=== PATIENT | female | born 1970 | race Two or more races ===

== ENCOUNTER 2022-11-24 15:58 | Emergency (ER) | payer MEDICAID, OTHER | END 2022-11-24 17:42 | disposition left against medical advice (07) | LOC: ER 15:58 | DX: R10.9 Unspecified abdominal pain (principal); Z53.21 Procedure and treatment not carried out due to patient leaving prior to being seen by health care provider ==

== ENCOUNTER 2023-06-06 13:47 | Inpatient (IN) | payer MEDICAID ==
[~2023-06-06] VITALS: Ht 165.1 cm; Wt 108.0 kg
[~2023-06-06 13:47] MED LIST: AML5T PO; HYOS0.1289 PO; LEVO50TA7 PO; PANT40TA2 PO; PERCOT PO
[2023-06-06] MEDS ORDERED: KETOROLAC TROMETH 60MG/2ML VIAL IM ONE (14:45)
[2023-06-06] MEDS ORDERED: PROCHLORPERAZINE EDISYLATE 5 MG/ML 2ML VIAL IM ONE (14:45)
[2023-06-06] MEDS ORDERED: LORazepam 2MG/ML-1ML VIAL IM ONE (14:45)
[2023-06-06 15:08] LABS: Basophils # (auto) 0.1 10 ^3/uL (0-0.2); Basophils % (auto) 0.4 % (0.0-2.0); Eosinophils # (auto) 0.2 10 ^3/uL (0-0.8); Eosinophils % (auto) 1.5 % (0.0-7.0); Hemoglobin 15.4 g/dL (12.2-16.2); Lymphocytes # (auto) 3.5 10 ^3/uL (0.4-5.4); Mean Corpuscular Hemoglobin 30.3 pg (28.0-32.0); Mean Corpuscular Hgb Conc. 34.3 g/dL (32.0-36.0); Mean Corpuscular Volume 88.4 fL (80.0-100.0); Monocytes # (auto) 0.6 10 ^3/uL (0-1.3); Monocytes % (auto) 4.1 % (0.0-12.0); Neutrophils # (auto) 9.2 10 ^3/uL (1.6-8.6); Red Blood Cells 5.09 10^6/uL (4.0-5.20); Red Cell Distribution Width 13.8 % (11.8-14.3); White Blood Cell 13.5 10^3/uL (4.4-10.8)
[2023-06-06 15:37] LABS: Alanine Aminotransferase 22 U/L (7-40); Albumin 4.7 g/dL (3.2-4.8); Alkaline Phosphatase 100 U/L (46-116); Anion Gap 10 (5-15); Aspartate Aminotransferase 12 U/L (13-40); BUN/Creatinine Ratio 18.3 (10.0-20.0); Blood Urea Nitrogen 17 mg/dL (9-23); Carbon Dioxide 22 mmol/L (20-30); Chloride 108 mmol/L (98-107); Glucose 120 mg/dL (74-106); Lipase 43 U/L (12-53); Potassium 3.9 mmol/L (3.5-5.1); Sodium 140 mmol/L (136-145)
[2023-06-06 15:38] LABS: Bilirubin, Total 0.7 mg/dL (0.2-1.0)
[2023-06-06 16:07] VITALS: PULSE 56; RESP 20; O2SAT 100
[2023-06-06 16:16] LABS: Urine Bacteria NONE SEEN /hpf (None Seen); Urine Blood 3+ /uL (Negative); Urine Clarity HAZY (Clear); Urine Color Red (Yellow); Urine Mucus FEW (None Seen); Urine Protein, UAD 2+ (Negative); Urine Specific Gravity 1.036 (1.001-1.035); Urine WBC 47 /hpf (0 - 5)
[2023-06-06] MEDS ORDERED: cefTRIAXone 1GM/50ML D5W 50 ML IV ONE (16:45)
[2023-06-06] MEDS ORDERED: SODIUM CHLORIDE 0.9% 1,000 ML IV ONE (18:45)
[2023-06-06] MEDS ORDERED: MORPHINE SULFATE 4 MG/ML SYR/VIAL IV ONE (18:45)
[2023-06-06 19:20] VITALS: PULSE 52; RESP 16; O2SAT 96
[2023-06-06] MEDS ORDERED: HYDROcodone-ACET 5/325MG TAB PO PRN (20:30)
[2023-06-06] MEDS ORDERED: TEMAZEPAM 15 MG CAP PO PRN (20:30)
[2023-06-06] MEDS ORDERED: ACETAMINOPHEN 325 MG TAB PO PRN (20:30)
[2023-06-06] MEDS ORDERED: MORPHINE SULFATE INJ 2 MG/ml SYRG IV PRN (20:30)
[2023-06-06] MEDS ORDERED: ONDANSETRON HCL 4 MG/2 ML VIAL IV PRN (20:30)
[2023-06-06] MEDS ORDERED: NITROGLYCERIN 0.4 MG SL TAB SL PRN (20:30)
[2023-06-07 05:11] LABS: Basophils # (auto) 0.1 10 ^3/uL (0-0.2); Basophils % (auto) 0.7 % (0.0-2.0); Eosinophils # (auto) 0 10 ^3/uL (0-0.8); Eosinophils % (auto) 0.1 % (0.0-7.0); Hematocrit 40.4 % (36.0-46.0); Hemoglobin 13.8 g/dL (12.2-16.2); Lymphocytes # (auto) 2.9 10 ^3/uL (0.4-5.4); Lymphocytes % (auto) 21.7 % (10.0-50.0); Mean Corpuscular Hemoglobin 30.3 pg (28.0-32.0); Mean Corpuscular Hgb Conc. 34.2 g/dL (32.0-36.0); Mean Corpuscular Volume 88.6 fL (80.0-100.0); Monocytes # (auto) 0.8 10 ^3/uL (0-1.3); Neutrophils # (auto) 9.5 10 ^3/uL (1.6-8.6); Neutrophils % (auto) 71.5 % (37.0-80.0); Red Blood Cells 4.56 10^6/uL (4.0-5.20); White Blood Cell 13.3 10^3/uL (4.4-10.8)
[2023-06-07 05:19] LABS: Chloride 107 mmol/L (98-107); Potassium 3.7 mmol/L (3.5-5.1); Sodium 137 mmol/L (136-145)
[2023-06-07 05:20] LABS: Anion Gap 8 (5-15); Carbon Dioxide 22 mmol/L (20-30)
[2023-06-07 05:25] LABS: BUN/Creatinine Ratio 13.4 (10.0-20.0); Blood Urea Nitrogen 16 mg/dL (9-23); Glucose 117 mg/dL (74-106)
[2023-06-07] MEDS: LEVOTHYROXINE SODIUM 50 MCG TAB PO SCH (06:37)
[2023-06-07] MEDS: MORPHINE SULFATE INJ 2 MG/ml SYRG IV PRN ×2 (06:49→22:06)
[2023-06-07 07:35] VITALS: RESP 16
[2023-06-07 09:00] VITALS: BP 138/83; PULSE 64; RESP 20; TEMP 98.6; O2SAT 97
[2023-06-07] MEDS: cefTRIAXone 1GM/50ML D5W 50 ML IV SCH (09:47)
[2023-06-07] MEDS: amLODIPine BESYLATE 5 MG TAB PO SCH (09:48)
[2023-06-07] MEDS ORDERED: PANTOPRAZOLE 40 MG TAB PO SCH (10:00)
[2023-06-07 13:00] VITALS: BP 133/76; PULSE 61; RESP 16; TEMP 98.1; O2SAT 96
[2023-06-07] MEDS ORDERED: LEVO50TA7 PO (14:55)
[2023-06-07] MEDS ORDERED: PERCOT PO (15:00)
[2023-06-07] MEDS ORDERED: PANT40TA2 PO ×2 (15:00→15:03)
[2023-06-07] MEDS ORDERED: SUCR1TAB PO (15:01)
[2023-06-07 17:00] VITALS: BP 126/79; PULSE 67; RESP 20; TEMP 98.7; O2SAT 95
[2023-06-07] MEDS: OXYCODONE W/ ACETAMINOPHEN 5/325MG TABLET PO PRN (17:35)
[2023-06-07 20:00] VITALS: BP 137/66; PULSE 57; RESP 18; TEMP 98.1; O2SAT 97
[2023-06-08] VITALS (8 sets, daily range): BP systolic 103–147; BP diastolic 60–95; PULSE 54–75; RESP 14–18; TEMP 97.7–98.5; O2SAT 96–99
[2023-06-08] MEDS: LEVOTHYROXINE SODIUM 50 MCG TAB PO SCH (06:13)
[2023-06-08] MEDS: amLODIPine BESYLATE 5 MG TAB PO SCH (10:39)
[2023-06-08] MEDS: cefTRIAXone 1GM/50ML D5W 50 ML IV SCH (10:39)
[2023-06-08] MEDS: MORPHINE SULFATE INJ 2 MG/ml SYRG IV PRN (11:21)
[2023-06-09] MEDS: MORPHINE SULFATE INJ 2 MG/ml SYRG IV PRN (02:42)
[2023-06-09 05:00] VITALS: BP 144/87; PULSE 53; RESP 18; TEMP 98.7; O2SAT 94
[2023-06-09] MEDS: LEVOTHYROXINE SODIUM 50 MCG TAB PO SCH ×2 (06:03→08:00)
[2023-06-09 08:00] VITALS: BP 142/86; PULSE 54; RESP 16; TEMP 97.7; O2SAT 96
[2023-06-09] MEDS: cefTRIAXone 1GM/50ML D5W 50 ML IV SCH (09:41)
[2023-06-09] MEDS: amLODIPine BESYLATE 5 MG TAB PO SCH (09:41)
[2023-06-09] MEDS ORDERED: HYDR-4902 PO (11:30)
[2023-06-09] MEDS ORDERED: LEVO500T91 PO (11:30)
[2023-06-09] MEDS: OXYCODONE W/ ACETAMINOPHEN 5/325MG TABLET PO PRN (11:36)
[2023-06-09 11:49] VITALS: BP 152/84; PULSE 58; RESP 19; TEMP 98.7; O2SAT 58
== END 2023-06-09 13:30 | disposition home or self-care (01) | DRG 463 ==
LOC: ER 13:47 → OVERFLOW 20:27 → WEST WING 06-07 08:25
PROVIDERS: ADMIT Nurse Practitioner; ATTEND Internal Medicine
DX: N13.6 Pyonephrosis (principal); E66.01 Morbid (severe) obesity due to excess calories; G89.4 Chronic pain syndrome; I10 Essential (primary) hypertension; K21.9 Gastro-esophageal reflux disease without esophagitis; Z87.442 Personal history of urinary calculi; Z68.39 Body mass index [BMI] 39.0-39.9, adult; Z88.5 Allergy status to narcotic agent; Z90.49 Acquired absence of other specified parts of digestive tract
CPT/HCPCS: 36415; 74176; 80048; 80053; 81001; 83690; 85025; 87086; 93005; 96372; G0378; J0696; J1885; J2405

== ENCOUNTER 2025-07-11 20:33 | Inpatient (IN) | payer MEDICAID ==
[~2025-07-11] VITALS: Ht 165.1 cm; Wt 57.3 kg
[~2025-07-11 20:33] MED LIST changes: -AML5T PO; -HYOS0.1289 PO; +LEVO500T91 PO; +SUCR1TAB PO
--- NOTE | 2025-07-11 20:37 | ED.PDOC ---
History of Present Illness HPI Comments 55 year old female with PMHx GERD, IBS presents to the ED via EMS with a chief complaint of abdominal pain onset today (07/11/25) around 17:00. Patient states she began experiencing epigastric pain around 17:00 as well as nausea, vomiting, describes pain as a burning sensation. Patient noticed pain worsens with eating, is also experiencing sweats. Denies fever, chills, diarrhea, constipation, hematemesis, dysuria, hematuria, chest pain, shortness of breath, melena, blood in stool. No other symptoms or modifying factors present at this time. REVIEW OF SYSTEMS: General: No fever, no chills, or fatigue HEENT: No sore throat, no earache, no congestion, no neck pain. Cardiac: No chest pain. No palpitations. Lungs: No shortness of breath, no cough. GI: Epigastric pain, nausea, vomiting. : No dysuria, frequency, or urgency. No hematuria. Musculoskeletal: No joint pain , no joint swelling, no extremity edema. Skin: No rash, no itching. Neuro: No headache, no dizziness, no weakness (And as sated in HPI) PHYSICAL EXAM: General: Awake, alert and oriented. No acute distress. Skin: Skin in warm, dry and intact. Appropriate color for ethnicity. HEENT: The head is normocephalic and atraumatic. Conjunctivae are clear without exudates or hemorrhage. Sclera is non-icteric. Eyelids are normal in appearance without swelling or lesions. Oral mucosa is pink and moist Neck: The neck is supple with normal range of motion. No JVD. Cardiac: Heart rate and rhythm are normal. No murmurs, gallops, or rubs are auscultated. Respiratory: No signs of respiratory distress. Lung sounds are clear in all lobes bilaterally without rales, rhonchi, or wheezes. Abdominal: epigastric tenderness to palpation. Extremities: Upper and lower extremities are atraumatic in appearance without deformity or edema. Neurological: The patient is awake, alert and oriented to person, place, and time with normal speech. Speech is clear. There is no facial asymmetry. Psychiatric: Appropriate mood and affect. Good judgement and insight. Time Seen by MD: 20:50 Primary Care Provider: RUDOLPH Reviewed Notes: Medications, Allergies Allergies: Coded Allergies: Hydrocodone (Verified Allergy, Mild, 12/24/22) gi n/v Home Meds Active Scripts Levofloxacin Hemihydrate (LEVAQUIN 500 MG) 500 Mg Tab, 1 TAB PO DAILY, #7 TAB Prov:LURDES PUCKETT MD 06/09/23 Reported Medications Pantoprazole Sodium Sesquihydr (Protonix) 40 Mg Tab, 40 MG PO BID, #30 TAB 06/07/23 Sucralfate (Sucralfate) 1 Gm Tab, 1 GM PO QID, GM 06/07/23 Oxycodone W/ Acetaminophen (Percocet 5/325MG) 1 Tab Tb, 1 TAB PO BID, #60 TAB 06/07/23 Levothyroxine Sodium (Levothyroxine Sodium) 50 Mcg Tab, 50 MCG PO QAM for 30 Days, MCG 06/07/23 Information Source: Patient, Emergency Med Personnel Mode of Arrival: EMS Severity: Moderate Timing: Hours Duration: Since onset Prehospital treatment: None Past Medical History PAST MEDICAL HISTORY: GERD Past Medical History (Other): IBS Surgical History: Denies all surgeries STUNT WOMAN History: No Pertinent STUNT WOMAN History Family History Family History: Reviewed,noncontributory to illness, No family hx of Cancer, No family hx of DM, No family hx of Heart lucho, No family hx of HTN, No family hx ofKidney lucho, No family hx of Liver lucho, No family hx of Lung lucho, No family hx of Stroke Social History Smoker: Non-Smoker Alcohol: Denies ETOH Use Drugs: Denies Drug Use Lives In: Home Was a procedure done? Was a procedure done?: No EKG EKG : Pulse Rate (adult): 68 Cardiac Rhythm: NSR Comments No STEMI. Differential Dx Considerations may include: Differential diagnoses considered include: Abdominal aortic aneurysm, OK, esophageal rupture, intestinal obstruction, mesenteric ischemia, perforated viscus or solid organ rupture, CHF with hepatomegaly, pneumonia, abscess, appendicitis, biliary disease, diverticulitis, gastritis, gastroenteritis, hepatitis, hernia, inflammatory bowel disease, pancreatitis, peptic ulcer disease, urinary tract infection, ureteral colic, constipation, GERD, irritable syndrome, abdominal wall pain, nonspecific abdominal pain, herpes zoster, nephrolithiasis. X-Ray, Labs, Meds, VS Vital Signs Date Time Temp Pulse Resp B/P (MAP) Pulse Ox O2 Delivery O2 Flow Rate FiO2 07/11/25 23:17 77 20 150/106 (121) 98 07/11/25 22:03 77 18 99 Room Air* 0 21 07/11/25 22:03 98.1 77 18 156/99 (118) 99 98.1 07/11/25 21:54 77 18 156/99 07/11/25 21:04 68 07/11/25 20:56 68 07/11/25 20:35 98.9 76 22 160/85 99 98.9 Lab Test 07/11/25 22:12 07/11/25 21:40 Range/Units Urine Color Yellow Yellow Urine Clarity Clear Clear Urine pH 8.5 5.0-9.0 Urine Specific Cornelius 1.023 1.001-1.035 Urine Protein 1+ H Negative Urine Ketones 3+ H Negative Urine Blood Negative Negative /uL Urine Nitrite Negative Negative Urine Bilirubin Negative Negative Urine Urobilinogen Normal Negative mg/dL Urine Leukocyte Esterase Negative Negative /uL Urine RBC 1 0 - 4 /hpf Urine Microscopic WBC 4 0-5 /HPF Urine Squamous Epithelial Cells Few <5 /hpf Urine Bacteria None seen None Seen /hpf Urine Mucus Few None Seen Urine Glucose Normal Normal mg/dL Urine Test Negative Negative Urine Opiates Screen Pos NEGATIVE Urine Fentanyl Screen Pos NEGATIVE Urine Barbiturates Screen Neg NEGATIVE Urine Phencyclidine Screen Neg NEGATIVE Urine Amphetamines Screen Neg NEGATIVE Urine Benzodiazepines Screen Neg NEGATIVE Urine Cocaine Screen Neg NEGATIVE Urine Cannabinoids Screen Pos NEGATIVE White Blood Count 9.4 4.4-10.8 10^3/uL Red Blood Count 5.34 H 4.0-5.20 10^6/uL Hemoglobin 15.7 12.2-16.2 g/dL Hematocrit 46.2 H 36.0-46.0 % Mean Corpuscular Volume 86.5 80.0-100.0 fL Mean Corpuscular Hemoglobin 29.5 28.0-32.0 pg Mean Corpuscular Hemoglobin Concent 34.1 32.0-36.0 g/dL Red Cell Distribution Width 14.2 11.8-14.3 % Platelet Count 218 140-450 10^3/uL Mean Platelet Volume 8.8 6.9-10.8 fL Neutrophils (%) (Auto) 74.1 37.0-80.0 % Lymphocytes (%) (Auto) 21.7 10.0-50.0 % Monocytes (%) (Auto) 3.4 0.0-12.0 % Eosinophils (%) (Auto) 0.3 0.0-7.0 % Basophils (%) (Auto) 0.5 0.0-2.0 % Neutrophils # (Auto) 6.9 1.6-8.6 10 ^3/uL Lymphocytes # (Auto) 2.0 0.4-5.4 10 ^3/uL Monocytes # (Auto) 0.3 0-1.3 10 ^3/uL Eosinophils # (Auto) 0 0-0.8 10 ^3/uL Basophils # (Auto) 0 0-0.2 10 ^3/uL Nucleated Red Blood Cells 0.0 % Sodium Level 139 136-145 mmol/L Potassium Level 3.5 3.5-5.1 mmol/L Chloride Level 104 98-107 mmol/L Carbon Dioxide Level 22 20-31 mmol/L Anion Gap 13 5-15 Blood Urea Nitrogen 9 9-23 mg/dL Creatinine 0.86 0.550-1.02 mg/dL Glomerular Filtration Rate Calc 80 >90 mL/min BUN/Creatinine Ratio 10.5 10.0-20.0 Serum Glucose 117 H 74-106 mg/dL Lactic Acid Level 1.8 0.4-2.0 mmol/L Calcium Level 10.0 8.7-10.4 mg/dL Magnesium Level 1.9 1.6-2.6 mg/dL Total Bilirubin 0.8 0.2-1.0 mg/dL Direct Bilirubin 0.3 <0.3 mg/dL Aspartate Amino Transferase (AST) 19 13-40 U/L Alanine Aminotransferase (ALT) 19 7-40 U/L Alkaline Phosphatase 90 46-116 U/L Total Protein 8.0 5.7-8.2 g/dL Albumin 4.7 3.2-4.8 g/dL Lipase 40 12-53 U/L Current Medications Medications (Trade) Dose Ordered Sig/Yoli Route Start Time Stop Time Status Last Admin Morphine Sulfate 4 mg ONCE ONCE IV 07/11/25 21:30 07/11/25 21:32 DC 07/11/25 21:54 Ondansetron HCl (Zofran) 4 mg ONCE ONCE IV 07/11/25 21:30 07/11/25 21:32 DC 07/11/25 21:52 Al Hydrox/Mg Hydrox/Simethicone (Maalox Plus) 30 ml ONCE ONCE PO 07/11/25 21:30 07/11/25 21:32 DC 07/11/25 21:58 Lidocaine HCl (Xylocaine 2% Viscous) 10 ml ONCE ONCE PO 07/11/25 21:30 07/11/25 21:32 DC 07/11/25 21:58 [place] [id number] Ph: [phone] DIAGNOSTIC IMAGING Diagnostic Imaging Report : [id number] Signed PATIENT: GURINDER BURGOS ACCT: [id number] UNIT: [id number] : 1970 LOC: ER ROOM / BED: / AGE / SEX: 55 / F ADM STATUS: REG ER SERVICE 29 ORDERING PHYSICIAN: KIRIT ALAMO MD PROCEDURE(s): ABPL - CT AB PEL WO CON-NO ORAL OR IV REASON: Severe Epigastric abdominal pain ORDER NUMBER(s): [id number], ACCESSION NUMBER(s): [id number] Exam: CT CT AB PEL WO CON-NO ORAL OR IV History: Severe Epigastric abdominal pain Comparison Study: CT CT AB PEL WO CON-NO ORAL OR IV on DOS: 06/28/25, CT CT AB PEL WO CON-NO ORAL OR IV on DOS: 01/05/25, CT CT AB PEL WO CON-NO ORAL OR IV on DOS: 06/06/23, CT CT AB PEL WO CON-NO ORAL OR IV on DOS: 11/19/22, CT ABD PELVIS WO CONTRAST on DOS: 01/18/21 Technique: Multidetector spiral CT of the abdomen was performed from lung bases to pubic symphysis. Imaging was performed without IV contrast. Axial, coronal and sagittal multiplanar reformats were obtained from the axial data set by the technologist. Radiation Dose : 1. Abdomen/Pelvis: CTDIvol 25.78 mGy, DLP 1443.8 mGy*cm. Findings: Evaluation of solid organs is limited due to lack of intravenous contrast use. Exam is further limited by beam hardening and streak artifact from arms down positioning. Lower Chest: No acute findings. Liver: Unremarkable. Gallbladder and Biliary Tree: Cholecystectomy change. Pancreas: Mild atrophy. Spleen: Unremarkable. Adrenal Glands: Unchanged low-density 1.5 cm left adrenal nodule. Kidneys/Ureters: No urinary stone or obstruction. Redemonstrated left renal cysts. Bladder: Grossly unremarkable for degree of distention. Pelvic Organs: Unremarkable. Bowel: Normal caliber without wall thickening. Normal appendix. Vasculature: Unremarkable. Lymphadenopathy: No obvious adenopathy. Peritoneum: No ascites, free air, or fluid collection. Abdominal Wall: Small fat containing umbilical hernia. Musculoskeletal: No acute findings. Degenerative changes. IMPRESSION: 1. No acute abdominopelvic abnormality, evidence of urinary stone or obstruction. Radiation optimization: All CT scans at this facility use at least one of these dose optimization techniques: automated exposure control mA and/or kV adjustment per patient size (includes targeted exams where dose is matched to clinical indication) or iterative reconstruction. ATED BY: VENANCIO JOSHI MD DICTATED DATE/TIME: 07/11/252213 SIGNED BY: VENANCIO JOSHI MD SIGNED DATE/TIME: 07/11/252213 CC: Time of 1ST Reevaluation: 21:20 Reevaluation 1ST: Unchanged Patient Education/Counseling: Need For Follow Up Family Education/Counseling: No Family Present SEPSIS Sepsis Screen Physician Orders Ct Ab Pel Wo Con-No Oral Or Iv (07/11/25 21:30) Vital Signs Date Time Temp Pulse Resp B/P (MAP) Pulse Ox O2 Delivery O2 Flow Rate FiO2 07/11/25 23:17 77 20 150/106 (121) 98 07/11/25 22:03 77 18 99 Room Air* 0 21 07/11/25 22:03 98.1 77 18 156/99 (118) 99 98.1 07/11/25 21:54 77 18 156/99 07/11/25 21:04 68 07/11/25 20:56 68 07/11/25 20:35 98.9 76 22 160/85 99 98.9 Laboratory Tests Test 07/11/25 21:40 Lactic Acid Level 1.8 mmol/L (0.4-2.0) White Blood Count 9.4 10^3/uL (4.4-10.8) Medications Medications Dose Ordered Sig/Yoli Route Start Time Stop Time Status Last Admin Dose Admin Al Hydrox/Mg Hydrox/Simethicone 30 ml ONCE ONCE PO 07/11/25 21:30 07/11/25 21:32 DC 07/11/25 21:58 Lidocaine HCl 10 ml ONCE ONCE PO 07/11/25 21:30 07/11/25 21:32 DC 07/11/25 21:58 Morphine Sulfate 4 mg ONCE ONCE IV 07/11/25 21:30 07/11/25 21:32 DC 07/11/25 21:54 Ondansetron HCl 4 mg ONCE ONCE IV 07/11/25 21:30 07/11/25 21:32 DC 07/11/25 21:52 Departure 1 Departure Time of Disposition: 23:56 Impression: Primary Impression: Acute abdominal pain Disposition: ADMITTED INPATIENT Condition: Stable Comments MDM: 55-year-old female with abdominal pain, nausea, vomiting. Labs and imaging reviewed Patient has persistent abdominal pain, nausea and vomiting despite treatment in the ED. Patient admitted to hospitalist service for further treatment, evaluation and monitoring. Extensive evaluation was performed in attempt to identify or rule out: (See differential diagnosis section) The following tests were ordered, and results were reviewed by me and discussed with patient: (See diagnostic results section) Decision regarding hospitalization or escalation of hospital level of care: Risk and benefits of admission for further treatment of patient's condition was considered. Due to patient's current clinical condition, high risk of decline and poor outcome if discharged and need for further inpatient management and monitoring, patient will be admitted to the hospital. Parenteral controlled substances: IV morphine Critical Care Note Critical Care Time?: No Stability Stability form required: No Heart Score Heart Score: Heart Score Response (Comments) Value History N/A 0 EKG N/A 0 Age N/A 0 Risk Factors N/A 0 Troponin N/A 0 Total 0 I personally scribed for KIRIT ALAMO MD ([email or web address]) on 07/11/25 at 21:04. Electronically submitted by Hattie Carpenter ([email or web address]). I personally scribed for KIRIT ALAMO MD ([email or web address]) on 07/11/25 at 22:50. Electronically submitted by Hattie Carpenter ([email or web address]). KIRIT ALAMO MD Jul 11, 2025 20:37
--- NOTE | 2025-07-11 21:03 | ECG ---
[facility] Test Date: 2025-07-11 Test Time: 20:56:32 Pat Name: GURINDER BURGOS Department: Room: Gender: F Waterproofer: ALKA : 1970 Requested By: KIRIT ALAMO Order Number: [id number] Reading MD: Measurements Intervals [place] Rate: 68 P: 30 PA: 132 QRS: 63 QRSD: 110 T: 64 QT: 401 QTc: 427 Interpretive Statements Sinus rhythm RSR' in V1 or V2, right VCD or RVH Please click the below link to view image of tracing.
[2025-07-11] MEDS: ONDANSETRON HCL 4 MG/2 ML VIAL IV ONE (21:52)
[2025-07-11] MEDS: MORPHINE SULFATE INJ 2 MG/ml SYRG IV ONE (21:54)
[2025-07-11] MEDS: MAALOX PLUS or MAALOX 30 ML PO ONE (21:58)
[2025-07-11] MEDS: LIDOCAINE VISCOUS 2% 15ML UD PO ONE (21:58)
[2025-07-11 22:03] VITALS: PULSE 77; RESP 18; O2SAT 99
[2025-07-11 22:11] LABS: Hematocrit 46.2 % (36.0-46.0); Hemoglobin 15.7 g/dL (12.2-16.2); Mean Corpuscular Hemoglobin 29.5 pg (28.0-32.0); Mean Corpuscular Volume 86.5 fL (80.0-100.0); Nucleated Red Blood Cells % 0.0 %
--- NOTE | 2025-07-11 22:16 | DVH ---
Exam: CT CT AB PEL WO CON-NO ORAL OR IV History: Severe Epigastric abdominal pain Comparison Study: CT CT AB PEL WO CON-NO ORAL OR IV on DOS: 06/28/25, CT CT AB PEL WO CON-NO ORAL OR IV on DOS: 01/05/25, CT CT AB PEL WO CON-NO ORAL OR IV on DOS: 06/06/23, CT CT AB PEL WO CON-NO ORAL OR IV on DOS: 11/19/22, CT ABD PELVIS WO CONTRAST on DOS: 01/18/21 Technique: Multidetector spiral CT of the abdomen was performed from lung bases to pubic symphysis. I maging was performed without IV contrast. Axial, coronal and sagittal multiplanar reformats were obta ined from the axial data set by the technologist. Radiation Dose : 1. Abdomen/Pelvis: CTDIvol 25.78 mGy, DLP 1443.8 mGy*cm. Findings: Evaluation of solid organs is limited due to lack of intravenous contrast use. Exam is further limite d by beam hardening and streak artifact from arms down positioning. Lower Chest: No acute findings. Liver: Unremarkable. Gallbladder and Biliary Tree: Cholecystectomy change. Pancreas: Mild atrophy. Spleen: Unremarkable. Adrenal Glands: Unchanged low-density 1.5 cm left adrenal nodule. Kidneys/Ureters: No urinary stone or obstruction. Redemonstrated left renal cysts. Bladder: Grossly unremarkable for degree of distention. Pelvic Organs: Unremarkable. Bowel: Normal caliber without wall thickening. Normal appendix. Vasculature: Unremarkable. Lymphadenopathy: No obvious adenopathy. Peritoneum: No ascites, free air, or fluid collection. Abdominal Wall: Small fat containing umbilical hernia. Musculoskeletal: No acute findings. Degenerative changes. IMPRESSION: 1. No acute abdominopelvic abnormality, evidence of urinary stone or obstruction. Radiation optimization: All CT scans at this facility use at least one of these dose optimization claire hniques: automated exposure control mA and/or kV adjustment per patient size (includes targeted exam s where dose is matched to clinical indication) or iterative reconstruction.
[2025-07-11 22:17] LABS: Alanine Aminotransferase 16 U/L (7-40); Alkaline Phosphatase 88 U/L (46-116); Anion Gap 13 (5-15); BUN/Creatinine Ratio 10.5 (10.0-20.0); Bilirubin, Total 0.9 mg/dL (0.2-1.0); Calcium 10.0 mg/dL (8.7-10.4); Carbon Dioxide 22 mmol/L (20-31); Chloride 104 mmol/L (98-107); Lipase 40 U/L (12-53); Sodium 139 mmol/L (136-145)
[2025-07-11 22:21] LABS: Albumin 4.8 g/dL (3.2-4.8); Blood Urea Nitrogen 9 mg/dL (9-23); Glucose 117 mg/dL (74-106); Potassium 3.5 mmol/L (3.5-5.1); Total Protein 8.4 g/dL (5.7-8.2)
[2025-07-11 22:30] LABS: Urine Protein, UAD 1+ (Negative)
[2025-07-12] VITALS (9 sets, daily range): BP systolic 113–152; BP diastolic 63–102; PULSE 61–69; RESP 18–20; TEMP 97.3–98.7; O2SAT 95–98
[2025-07-12] MEDS: SODIUM CHLORIDE 0.9% 1,000 ML IV ONE ×2 (00:45→03:05)
[2025-07-12] MEDS: PANTOPRAZOLE 40 MG/10 ML VIAL INJ IV ONE (01:06)
[2025-07-12] MEDS: HYDROmorphone HCL 2 MG/ML VL/or syr IV PRN (01:09)
--- NOTE | 2025-07-12 01:09 | DVHHPRES ---
History of Present Illness Resident Creating Document: MAYRA ESTEBAN RESIDENT History of Present Illness 55-year-old female with a past medical history of hypothyroidism, renal stones, has come to the emergency room today due to abdominal pain, nausea and vomiting. Patient reports that today evening at 5:00 p.m. 5:00 p.m. she had sudden onset of generalized abdominal pain, 10/ 10 in intensity, nonradiating,with o aggravating or relieving factors associated with burping,, nausea in 4-5 episodes of Nonbloody, watery emesis as well as 4 episodes of watery diarrhea. patient reports she has not been able to keep any food down and denies any sick contacts, food that could have caused the aforementioned symptoms, no travel history, urinary symptoms, chest pain, shortness of breaths, Flu-like symptoms. On admission blood pressure was 160/ 85, temp 98.1, HR 77, RR 20, SpO2 99% in ra. we are admitting the patient for further workup and management. Past medical history: As stated above Past surgical history: umbilical hernia repair 2 times Family history: Noncontributory Social history: Patient denies any alcohol use. She smokes marijuana as needed for pain and reports she quit smoking 1 year ago, used to smoke 2 packs per week for 30 years Medications at home: Levothyroxine, Protonix Allergy: Lasix PCP Dr. Dobbs Code status: Full code Review of Systems Constitutional: No: Fever, Chills, Sweats, Weakness, Malaise, Other Eyes: No: Pain, Vision change, Conjunctivae inflammation, Eyelid inflammation, Other, Redness ENT: No: Ear pain, Ear discharge, Nose pain, Nose discharge, Nose congestion, Mouth pain, Mouth swelling, Throat pain, Throat swelling, Other Respiratory: No: Cough, Dry, Shortness of breath, SOB with excertion, Wheezing, Hemoptysis, Pleuritic Pain, Sputum, Wheezing, Other Cardiovascular: No: Chest Pain, Palpitations, Orthopnea, Paroxysmal Noc. Dyspnea, Edema, Lt Headedness, Other Gastrointestinal: Nausea, Vomiting, Abdominal Pain, Diarrhea; No: Constipation, Melena, Hematochezia, Other Genitourinary: No Dysuria, No Frequency, No Incontinence, No Hematuria, No Retention, No Other Musculoskeletal: No: other, neck pain, shoulder pain, arm pain, back pain, hand pain, leg pain, foot pain Skin: No: Rash, Lesions, Jaundice, Bruising, Other Neurological: No: Weakness, Numbness, Incoordination, Change in speech, Confusion, Seizures, Other Allergies: Coded Allergies: Hydrocodone (Verified Allergy, Mild, 12/24/22) gi n/v Medications Current Medications Medications Dose Ordered Sig/Yoli Route Start Time Stop Time Status Last Admin Dose Admin Ondansetron HCl 4 mg Q4HP PRN IV 07/12/25 00:45 Enoxaparin Sodium 40 mg DAILY SC 07/12/25 00:45 Hydromorphone HCl 0.25 mg Q4HPRN PRN IV 07/12/25 00:45 Metronidazole 100 ml @ 100 mls/hr Q8HR IV 07/12/25 06:00 Ceftriaxone Sodium 50 ml @ 100 mls/hr DAILY@09 IV 07/12/25 09:00 Pantoprazole Sodium 40 mg DAILY IV 07/12/25 10:00 Levothyroxine Sodium 50 mcg QAM PO 07/12/25 07:00 Exam Vital Signs Vital Signs Date Time Temp Pulse Resp B/P (MAP) Pulse Ox O2 Delivery O2 Flow Rate FiO2 07/11/25 23:17 77 20 150/106 (121) 98 07/11/25 22:03 Room Air* 0 21 07/11/25 22:03 98.1 98.1 Exam General Appearance: Alert, Oriented X3, Cooperative, in acute distress HEENT: Atraumatic, Mucous membranes moist/pink Respiratory: Clear to auscultation, Normal air movement, No added sounds Cardiovascular: Regular rate, Normal S1, Normal S2, No murmurs Abdominal: Active bowel sounds, Soft, tenderness on mild palpation in all quadrants Extremities: No edema, Normal pulses, No tenderness/swelling Skin: No Significant rash, except past surgical scars Neuro: Normal speech, sensorimotor deficits none Psych/Mental Status: Mental status NL, Mood NL 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 Labs/Xrays Labs Test 07/11/25 22:12 07/11/25 21:40 Range/Units Urine Color Yellow Yellow Urine Clarity Clear Clear Urine pH 8.5 5.0-9.0 Urine Specific [place] 1.023 1.001-1.035 Urine Protein 1+ H Negative Urine Ketones 3+ H Negative Urine Blood Negative Negative /uL Urine Nitrite Negative Negative Urine Bilirubin Negative Negative Urine Urobilinogen Normal Negative mg/dL Urine Leukocyte Esterase Negative Negative /uL Urine RBC 1 0 - 4 /hpf Urine Microscopic WBC 4 0-5 /HPF Urine Squamous Epithelial Cells Few <5 /hpf Urine Bacteria None seen None Seen /hpf Urine Mucus Few None Seen Urine Glucose Normal Normal mg/dL Urine Test Negative Negative White Blood Count 9.4 4.4-10.8 10^3/uL Red Blood Count 5.34 H 4.0-5.20 10^6/uL Hemoglobin 15.7 12.2-16.2 g/dL Hematocrit 46.2 H 36.0-46.0 % Mean Corpuscular Volume 86.5 80.0-100.0 fL Mean Corpuscular Hemoglobin 29.5 28.0-32.0 pg Mean Corpuscular Hemoglobin Concent 34.1 32.0-36.0 g/dL Red Cell Distribution Width 14.2 11.8-14.3 % Platelet Count 218 140-450 10^3/uL Mean Platelet Volume 8.8 6.9-10.8 fL Neutrophils (%) (Auto) 74.1 37.0-80.0 % Lymphocytes (%) (Auto) 21.7 10.0-50.0 % Monocytes (%) (Auto) 3.4 0.0-12.0 % Eosinophils (%) (Auto) 0.3 0.0-7.0 % Basophils (%) (Auto) 0.5 0.0-2.0 % Neutrophils # (Auto) 6.9 1.6-8.6 10 ^3/uL Lymphocytes # (Auto) 2.0 0.4-5.4 10 ^3/uL Monocytes # (Auto) 0.3 0-1.3 10 ^3/uL Eosinophils # (Auto) 0 0-0.8 10 ^3/uL Basophils # (Auto) 0 0-0.2 10 ^3/uL Nucleated Red Blood Cells 0.0 % Sodium Level 139 136-145 mmol/L Potassium Level 3.5 3.5-5.1 mmol/L Chloride Level 104 98-107 mmol/L Carbon Dioxide Level 22 20-31 mmol/L Anion Gap 13 5-15 Blood Urea Nitrogen 9 9-23 mg/dL Creatinine 0.86 0.550-1.02 mg/dL Glomerular Filtration Rate Calc 80 >90 mL/min BUN/Creatinine Ratio 10.5 10.0-20.0 Serum Glucose 117 H 74-106 mg/dL Lactic Acid Level 1.8 0.4-2.0 mmol/L Calcium Level 10.0 8.7-10.4 mg/dL Lipase 40 12-53 U/L SEPSIS Sepsis Screen Date sepsis recognized/suspect: Jul 11, 2025 Time Sepsis recognized/suspect: 2034 Recent Procedure: No On Antibiotic Therapy: No Respiratory Rate >20: No Heart Rate >90: No Temp<36 C (96.8 F) or >38.3 C: No SBP <90 or MAP <65 mmHG: No New Acute Mental Status Change: No Is the patient on CPAP, BIPAP,: No Physician Orders Ct Ab Pel Wo Con-No Oral Or Iv (07/11/25 21:30) Admit (07/12/25 00:31) Code Status (07/12/25 00:31) Ondansetron Hcl (Zofran) (07/12/25 00:45) Complete Blood Count (07/12/25 04:00) Comprehensive Metabolic Panel (07/12/25 04:00) Npo (Nothing By Mouth) Diet (07/12/25 Breakfast) Condition: Unstable (07/12/25 00:31) Enoxaparin Sodium (Lovenox) (07/12/25 00:45) Magnesium (07/12/25 00:31) Hepatic Panel (07/12/25 00:31) Sodium Chloride 0.9% (07/12/25 00:45) Stool Bacterial Culture (07/12/25 00:31) Stool Wbc (07/12/25 00:31) Stool Occult Blood (07/12/25 00:31) Clostridium Difficile Toxin (07/12/25 00:31) Hydromorphone Injection (Dilaudid Inject (07/12/25 00:45) Metronidazole 500mg/100ml (Flagyl 500mg/ (07/12/25 06:00) Ceftriaxone 1gm/50ml (Rocephin) (07/12/25 09:00) Pantoprazole (Protonix) (07/12/25 10:00) Levothyroxine Tablet (Synthroid Tablet) (07/12/25 07:00) Drug Screen (07/12/25 00:31) Sodium Chloride 0.9% (07/12/25 00:45) Vital Signs Date Time Temp Pulse Resp B/P (MAP) Pulse Ox O2 Delivery O2 Flow Rate FiO2 07/11/25 23:17 77 20 150/106 (121) 98 07/11/25 22:03 77 18 99 Room Air* 0 21 07/11/25 22:03 98.1 77 18 156/99 (118) 99 98.1 07/11/25 21:54 77 18 156/99 07/11/25 21:04 68 07/11/25 20:56 68 07/11/25 20:35 98.9 76 22 160/85 99 98.9 Laboratory Tests Test 07/11/25 21:40 Lactic Acid Level 1.8 mmol/L (0.4-2.0) White Blood Count 9.4 10^3/uL (4.4-10.8) Medications Medications Dose Ordered Sig/Yoli Route Start Time Stop Time Status Last Admin Dose Admin Al Hydrox/Mg Hydrox/Simethicone 30 ml ONCE ONCE PO 07/11/25 21:30 07/11/25 21:32 DC 07/11/25 21:58 30 ML Lidocaine HCl 10 ml ONCE ONCE PO 07/11/25 21:30 07/11/25 21:32 DC 07/11/25 21:58 10 ML Morphine Sulfate 4 mg ONCE ONCE IV 07/11/25 21:30 07/11/25 21:32 DC 07/11/25 21:54 4 MG Ondansetron HCl 4 mg ONCE ONCE IV 07/11/25 21:30 07/11/25 21:32 DC 07/11/25 21:52 4 MG Assessment/Plan Assessment/Plan #Acute gastroenteritis #possible cyclic vomiting syndrome due to marijuana use -NPO -Pantoprazole 40 mg IV once and IV daily -Zofran 4 mg IV q.4 PRN for nausea and vomiting -Dilaudid 0.25 mg IV q.4 PRN -IV normal saline 1000 mL bolus and 125 mL/hour maintenance 1 -IV metronidazole 500 mg Q 8 daily -IV ceftriaxone 1g daily -Magnesium -Stool occult blood -Stool WBC -Clostridium difficile toxin -Stool bacterial culture #1.5 cm left adrenal nodule -Seen in CT abdomen and pelvis, incidental finding -monitor #Hypothyroidism -continue home medication levothyroxine 50 mcg daily #Chronic back pain syndrome -monitor -pain management with Dilaudid 0.25 mg as needed #Polysubstance abuse, marijuana and fentanyl -UDS-positive for cannabinoids and fentanyl -patient has been counseled extensively regarding the need of cessation of marijuana and the side effects it has on health #Morbid obesity, 41.5 kg/m2 -Patient was counseled extensively regarding need of weight loss, dietary modification and lifestyle changes for over 8 minutes GI prophylaxis: Protonix 40 mg IV daily DVT prophylaxis: Lovenox 40 mg subcutaneous daily Diet: NPO Goals of care discussed with the patient for more than 27 minutes: Full code status Case discussed with Dr. More, patient Plan discussed with: Patient My Orders Orders - MAYRA ESTEBAN RESIDENT Procedure Category Date Status Time Admit ADMIT 07/12/25 Transmitted 00:31 Code Status CODE 07/12/25 Transmitted 00:31 Ondansetron Hcl PHA 07/12/25 In Process (Zofran) 00:45 Complete Blood Count LAB 07/12/25 Logged 04:00 Comprehensive LAB 07/12/25 Logged Metabolic Panel 04:00 Npo (Nothing By DIET 07/12/25 Transmitted Mouth) Diet Breakfast Condition: Unstable ALEAH 07/12/25 In Process 00:31 Enoxaparin Sodium PHA 07/12/25 In Process (Lovenox) 00:45 Magnesium LAB 07/12/25 In Process 00:31 Hepatic Panel LAB 07/12/25 In Process 00:31 Sodium Chloride 0.9% PHA 07/12/25 In Process 00:45 Stool Bacterial BELINDA 07/12/25 Logged Culture 00:31 Stool Wbc LAB 07/12/25 Logged 00:31 Stool Occult Blood LAB 07/12/25 Logged 00:31 Clostridium Difficile BELINDA 07/12/25 Logged Toxin 00:31 Hydromorphone PHA 07/12/25 In Process Injection (Dilaudid 00:45 Metronidazole PHA 07/12/25 In Process 500mg/100ml (Flagyl 06:00 Ceftriaxone 1gm/50ml PHA 07/12/25 In Process (Rocephin) 09:00 Pantoprazole PHA 07/12/25 In Process (Protonix) 10:00 Levothyroxine Tablet PHA 07/12/25 In Process (Synthroid Tablet) 07:00 Drug Screen LAB 07/12/25 Logged 00:31 Sodium Chloride 0.9% PHA 07/12/25 In Process 00:45 Date of Service: Jul 12, 2025 Billing Provider: SHAHBAZ MORE MD Common Visit Codes: [id number] INP/OBS CARE (HIGH) Secondary Visit Codes: [id number] CARE PLAN 30 MINUTES MAYRA ESTEBAN RESIDENT Jul 12, 2025 01:08
[2025-07-12] MEDS: ONDANSETRON HCL 4 MG/2 ML VIAL IV PRN (01:12)
[2025-07-12] MEDS: ENOXAPARIN SOD 40 MG/0.4 ML SYRINGE SC SCH (01:14)
[2025-07-12 01:59] LABS: Alkaline Phosphatase 90.0 U/L (46-116); Magnesium 1.9 mg/dL (1.6-2.6); Total Protein 8.0 g/dL (5.7-8.2)
[2025-07-12 02:00] LABS: Alanine Aminotransferase 19.0 U/L (7-40); Albumin 4.7 g/dL (3.2-4.8); Bilirubin, Direct 0.3 mg/dL (<0.3)
[2025-07-12 02:01] LABS: Bilirubin, Total 0.8 mg/dL (0.2-1.0)
[2025-07-12 03:15] LABS: Opiate Scree,Urine Pos (NEGATIVE)
[2025-07-12 03:51] LABS: Amphetamine Screen, Urine Neg (NEGATIVE); Barbiturate Scree,Urine Neg (NEGATIVE); Benzodiazephine Screen, Urine Neg (NEGATIVE); Cannabinoid Screen, Urine Pos (NEGATIVE); Cocaine Screen, Urine Neg (NEGATIVE); Phencyclidine Screen, Urine Neg (NEGATIVE)
[2025-07-12] MEDS ORDERED: LEVOTHYROXINE SODIUM 50 MCG TAB PO SCH (07:00)
[2025-07-12 07:22] LABS: Hematocrit 43.6 % (36.0-46.0); Hemoglobin 14.6 g/dL (12.2-16.2); Mean Corpuscular Hemoglobin 29.1 pg (28.0-32.0); Mean Corpuscular Volume 86.9 fL (80.0-100.0); Nucleated Red Blood Cells % 0.0 %
[2025-07-12 07:26] LABS: COVID19 ANTIGEN SOFIA FIA NEGATIVE (NEGATIVE)
[2025-07-12 07:37] LABS: Alanine Aminotransferase 14 U/L (7-40); Albumin 4.5 g/dL (3.2-4.8); Alkaline Phosphatase 79 U/L (46-116); Anion Gap 11 (5-15); BUN/Creatinine Ratio 9.4 (10.0-20.0); Calcium 9.1 mg/dL (8.7-10.4); Carbon Dioxide 25 mmol/L (20-31); Chloride 106 mmol/L (98-107); Glucose 102 mg/dL (74-106); Potassium 3.9 mmol/L (3.5-5.1); Sodium 142 mmol/L (136-145); Total Protein 7.8 g/dL (5.7-8.2)
[2025-07-12 07:38] LABS: Bilirubin, Total 0.8 mg/dL (0.2-1.0)
[2025-07-12 07:39] LABS: Blood Urea Nitrogen 8 mg/dL (9-23)
[2025-07-12] MEDS: ACETAMINOPHEN 325 MG TAB PO PRN (09:13)
[2025-07-12] MEDS: PANTOPRAZOLE 40 MG/10 ML VIAL INJ IV SCH (09:14)
[2025-07-13] VITALS (8 sets, daily range): BP systolic 134–146; BP diastolic 73–97; PULSE 60–72; RESP 18–20; TEMP 98–98.7; O2SAT 94–98
--- NOTE | 2025-07-13 11:05 | DVHPNRES ---
Progress Note Date Seen: Jul 12, 2025 Resident Creating Document: BRADY EVERETT RESIDENT Medical Necessity Reason Pt with a Central, PICC or Fol: No Subjective Review of Systems 55-year-old female with a past medical history of GERD, IBS, fibromyalgia, osteoarthritis, degenerative disc disease, hypothyroidism, renal stones presented to the ED with complaints of abdominal pain, nausea, vomiting since 1 day. She also complains of associated burning sensation and backache. She rated the abdominal pain 10 on 10 in intensity nonradiating with no aggravating or alleviating factors. She states she has had 4 episodes of vomiting and 3-4 episodes of diarrhea. Patient denies any fever or dysuria. Patient states she was here 2 weeks ago for the same complaints. PMHx:GERD, IBS, fibromyalgia, osteoarthritis, degenerative disc disease, hypothyroidism, renal stones PSHx: Cholecystectomy, tonsillectomy, umbilical hernia repair Family history: History of multiple myeloma in mother, breast cancer in sister Social history: Denies alcohol use, admits to Home medication: Levothyroxine Protonix Allergic history: Hydrocodone General: patient denies fever, fatigue, weaknes, sweating, any recent changes in appetite and weight HEENT: No headaches, visiual changes, hearing loss, tinnitus, nasal congestion and discharge, and sore throat. Cardiovascular: Denies chest pain, palpitations, dyspnea on exertion, orthopnea, or claudication. Respiratory: No cough, and wheezing. Gastrointestinal: Complains of abdominal pain, vomiting, heartburn. Genitourinary: No dysuria, hematuria, discharge, frequency, urgency, nocturia, incontinence, and urinary retention. Endocrine: No heat or cold intolerance, polydipsia, polyuria, and polyphagia. Neurological: No dizziness, extremity weakness and numbness, tremors, gait disturbance, seizures, and memory impairment. Psychiatric: Denies depression, anxiety,or insomnia. Musculoskeletal: Denies neck pain, stiffness and swelling, back pain, muscle weakness, joint pain, stiffness, swelling, or limited range of motion. Skin: No rashes, itching, skin lesion, changes in hair, nail, skin texture and breast. Hematologic/Lymphatic: Denies easy bruising, bleeding tendencies, or lymph node enlargement. Objective vital signs Vital Sign Date Time Temp Pulse Resp B/P (MAP) Pulse Ox O2 Delivery O2 Flow Rate FiO2 07/12/25 09:00 98.3 66 18 113/65 (81) 97 98.3 07/12/25 07:55 Room Air* 0 21 Total Intake and Output 07/11/25 07/11/25 07/12/25 15:00 23:00 07:00 Intake Total 800 ml Output Total 100 ml Balance 700 ml medications Current Medications Medications Dose Ordered Sig/Yoli Route Start Time Stop Time Status Last Admin Dose Admin Ondansetron HCl 4 mg Q4HP PRN IV 07/12/25 00:45 07/12/25 06:34 4 MG Enoxaparin Sodium 40 mg DAILY SC 07/12/25 00:45 07/12/25 09:14 40 MG Hydromorphone HCl 0.25 mg Q4HPRN PRN IV 07/12/25 00:45 07/12/25 06:44 0.25 MG Metronidazole 100 ml @ 100 mls/hr Q8HR IV 07/12/25 06:00 07/12/25 06:44 100 MLS/HR Ceftriaxone Sodium 50 ml @ 100 mls/hr DAILY@09 IV 07/12/25 09:00 07/12/25 08:29 100 MLS/HR Pantoprazole Sodium 40 mg DAILY IV 07/12/25 10:00 07/12/25 09:14 40 MG Acetaminophen 650 mg Q4HP PRN PO 07/12/25 08:45 07/12/25 09:13 650 MG Examination General Appearance: Alert, Oriented X3, Cooperative, No acute distress HEENT: Atraumatic, PERRLA, EOMI, Mucous membrane moist/pink Respiratory: Clear to auscultation, Normal air movement Cardiovascular: Regular rate, Normal S1, Normal S2, No murmurs, no chest wall tenderness Abdominal: Normal bowel sounds, Soft, No hepatospenomegaly, No masses. T enderness In the epigastric region Extremities: No clubbing, No cyanosis, No edema, Normal pulses, No tenderness/swelling Skin: No rashes, No breakdown, No significant lesion Neuro: Normal gait, Normal speech, Strength at 5/5 X4 ext, Normal tone, Sensation intact, Cranial nerves 3-12 NL, Reflexes 2+ Psych/Mental Status: Mental status NL, Mood NL laboratory and microbiology Laboratory Tests 07/12/25 06:50 Test 07/12/25 06:50 Range/Units Serum Glucose 102 74-106 mg/dL Problem List/Assessment/Plan Problem List/Assessment/Plan Assessment/Plan #Acute gastroenteritis #possible cyclic vomiting syndrome due to marijuana use -started on clear liquid diet -Pantoprazole 40 mg IV once and IV daily -Zofran 4 mg IV q.4 PRN for nausea and vomiting -Dilaudid 0.25 mg IV q.4 PRN -IV normal saline 1000 mL bolus and 125 mL/hour maintenance 1 -stopped antibiotics -Magnesium -Stool occult blood -Stool WBC -Clostridium difficile toxin -Stool bacterial culture #1.5 cm left adrenal nodule -Seen in CT abdomen and pelvis, incidental finding -monitor #Hypothyroidism -continue home medication levothyroxine 50 mcg daily #Chronic back pain syndrome -monitor -pain management with Dilaudid 0.25 mg as needed #Polysubstance abuse, marijuana and fentanyl -UDS-positive for cannabinoids and fentanyl -patient has been counseled extensively regarding the need of cessation of marijuana and the side effects it has on health #Morbid obesity, 41.5 kg/m2 -Patient was counseled extensively regarding need of weight loss, dietary modification and lifestyle changes for over 8 minutes #GERD Protonix 40 mg #Irritable bowel syndrome Follow up with PCP on discharge #Fibromyalgia Follow-up with PCP on discharge #Osteoarthritis Counseled on exercise and weight loss #History of degenerative disc disease Follow up with PCP on discharge GI prophylaxis: Protonix 40 mg IV daily DVT prophylaxis: Lovenox 40 mg subcutaneous daily Diet: NPO Goals of care discussed with the patient for more than 27 minutes: Full code status Plan discussed with: Patient My Orders My Orders Orders - BRADY EVERETT RESIDENT Procedure Category Date Status Time Acetaminophen Tablet PHA 07/12/25 In Process (Tylenol Tablet) 08:45 Date of Service: Jul 12, 2025 Billing Provider: ROSA BRASWELL MD Common Visit Codes: [id number] INP/OBS CARE(HIGH) BRADY EVERETT RESIDENT Jul 12, 2025 09:51 ROSA BRASWELL MD Jul 16, 2025 20:44
--- NOTE | 2025-07-13 15:24 | DVHDSRES ---
Discharge Summary Date of Admission Resident Creating Document: BRADY EVERETT RESIDENT Jul 12, 2025 at 00:31 Date of Discharge: Jul 13, 2025 Labs/Diagnostic Data: Laboratory Results Test 07/12/25 07:01 07/12/25 06:50 07/11/25 22:12 07/11/25 21:40 Influenza Type A Antigen Negative (Negative) Influenza Type B Antigen Negative (Negative) SARS-CoV-2 Antigen (Rapid) Negative (NEGATIVE) White Blood Count 7.1 10^3/uL (4.4-10.8) Red Blood Count 5.02 10^6/uL (4.0-5.20) Hemoglobin 14.6 g/dL (12.2-16.2) Hematocrit 43.6 % (36.0-46.0) Mean Corpuscular Volume 86.9 fL (80.0-100.0) Mean Corpuscular Hemoglobin 29.1 pg (28.0-32.0) Mean Corpuscular Hemoglobin Concent 33.5 g/dL (32.0-36.0) Red Cell Distribution Width 14.2 % (11.8-14.3) Platelet Count 199 10^3/uL (140-450) Mean Platelet Volume 8.7 fL (6.9-10.8) Neutrophils (%) (Auto) 62.2 % (37.0-80.0) Lymphocytes (%) (Auto) 31.4 % (10.0-50.0) Monocytes (%) (Auto) 6.1 % (0.0-12.0) Eosinophils (%) (Auto) 0.0 % (0.0-7.0) Basophils (%) (Auto) 0.3 % (0.0-2.0) Neutrophils # (Auto) 4.4 10 ^3/uL (1.6-8.6) Lymphocytes # (Auto) 2.2 10 ^3/uL (0.4-5.4) Monocytes # (Auto) 0.4 10 ^3/uL (0-1.3) Eosinophils # (Auto) 0 10 ^3/uL (0-0.8) Basophils # (Auto) 0 10 ^3/uL (0-0.2) Nucleated Red Blood Cells 0.0 % Sodium Level 142 mmol/L (136-145) Potassium Level 3.9 mmol/L (3.5-5.1) Chloride Level 106 mmol/L (98-107) Carbon Dioxide Level 25 mmol/L (20-31) Anion Gap 11 (5-15) Blood Urea Nitrogen 8 mg/dL (9-23) Creatinine 0.85 mg/dL (0.550-1.02) Glomerular Filtration Rate Calc 81 mL/min (>90) BUN/Creatinine Ratio 9.4 (10.0-20.0) Serum Glucose 102 mg/dL (74-106) Calcium Level 9.1 mg/dL (8.7-10.4) Total Bilirubin 0.8 mg/dL (0.2-1.0) Aspartate Amino Transferase (AST) 16 U/L (13-40) Alanine Aminotransferase (ALT) 14 U/L (7-40) Alkaline Phosphatase 79 U/L (46-116) Total Protein 7.8 g/dL (5.7-8.2) Albumin 4.5 g/dL (3.2-4.8) Urine Color Yellow (Yellow) Urine Clarity Clear (Clear) Urine pH 8.5 (5.0-9.0) Urine Specific [place] 1.023 (1.001-1.035) Urine Protein 1+ (Negative) Urine Ketones 3+ (Negative) Urine Blood Negative /uL (Negative) Urine Nitrite Negative (Negative) Urine Bilirubin Negative (Negative) Urine Urobilinogen Normal mg/dL (Negative) Urine Leukocyte Esterase Negative /uL (Negative) Urine RBC 1 /hpf (0 - 4) Urine Microscopic WBC 4 /HPF (0-5) Urine Squamous Epithelial Cells Few /hpf (<5) Urine Bacteria None seen /hpf (None Seen) Urine Mucus Few (None Seen) Urine Glucose Normal mg/dL (Normal) Urine Test Negative (Negative) Urine Opiates Screen Pos (NEGATIVE) Urine Fentanyl Screen Pos (NEGATIVE) Urine Barbiturates Screen Neg (NEGATIVE) Urine Phencyclidine Screen Neg (NEGATIVE) Urine Amphetamines Screen Neg (NEGATIVE) Urine Benzodiazepines Screen Neg (NEGATIVE) Urine Cocaine Screen Neg (NEGATIVE) Urine Cannabinoids Screen Pos (NEGATIVE) Lactic Acid Level 1.8 mmol/L (0.4-2.0) Magnesium Level 1.9 mg/dL (1.6-2.6) Direct Bilirubin 0.3 mg/dL (<0.3) Lipase 40 U/L (12-53) Other Laboratory Tests 07/12/25 06:50 Brief Hx & Hospital Course: 55-year-old female with a past medical history of GERD, IBS, fibromyalgia, osteoarthritis, degenerative disc disease, hypothyroidism, renal stones presented to the ED with complaints of abdominal pain, nausea, vomiting since 1 day. She also complained of associated burning sensation and backache. She rated the abdominal pain 10 on 10 in intensity nonradiating with no aggravating or alleviating factors. She states she has had 4 episodes of vomiting and 3-4 episodes of diarrhea. Patient denied any fever or dysuria. Patient stated she was here 2 weeks ago for the same complaints. Blood work and CT abdomen was normal. Urine was positive for opiates and fentanyl. The hospital patient was treated with antiemetics, pain killers and proton pump inhibitors. While in the hospital patient was clinically and symptomatically better and hence is being discharged. Condition at Discharge: Fair Final Diagnosis/Problems List #Acute gastroenteritis #possible cyclic vomiting syndrome due to marijuana use #1.5 cm left adrenal nodule #Hypothyroidism #Chronic back pain syndrome #Polysubstance abuse, marijuana and fentanyl #Morbid obesity, 41.5 kg/m2 #GERD #Irritable bowel syndrome #Fibromyalgia #Osteoarthritis #History of degenerative disc disease Discharge Disposition: Home Discharge Instruct/Medications Diet: Regular Activity: No Restrictions, As Tolerated Follow Up/Referral: Follow up with PCP in 7 days Scheduled Levofloxacin Hemihydrate (Levaquin 500 Mg), 1 TAB PO DAILY Levothyroxine Sodium (Levothyroxine Sodium), 50 MCG PO QAM, (Reported) Mupirocin (Pseudomonas Fluores (Mupirocin), 2 % EX BID Oxycodone W/ Acetaminophen (Percocet 5/325MG), 1 TAB PO BID, (Reported) Pantoprazole Sodium Sesquihydr (Protonix), 40 MG PO BID, (Reported) Sucralfate (Sucralfate), 1 GM PO QID, (Reported) Discharge Statement: "Patient was advised to return to the ER or call 911 if any headaches, dizziness, shortness of breath, chest pain, abdominal pain, bleeding, fevers, or worsening of medical condition. Patient was counseled about treatment plan, medications, possible side effects, patientverbalized understanding. All questions were answered to the best of my ability. This discharge took greater then 30 minutes in planning, reviewing documentation, counseling the patient, and discussing with other team members." ASSESSMENT ASSESSMENT Assessment Acute Gastroenteritis Possible cyclic vomiting syndrome Date of Service: Jul 13, 2025 Billing Provider: ROSA BRASWELL MD Common Visit Codes: [id number]/[id number] DISCH DAY >30min BRADY EVERETT Jul 13, 2025 15:24 ROSA BRASWELL MD Jul 16, 2025 20:44
[2025-07-13] MEDS ORDERED: MUPI2OIN2 EX (17:54)
== END 2025-07-13 18:48 | disposition home or self-care (01) | DRG 248 ==
LOC: EDBD 20:33 → ER 20:36 → OVERFLOW 07-12 00:31 → CENTRAL 07-12 02:02
PROVIDERS: ADMIT Internal Medicine Geriatric Medicine; ATTEND Internal Medicine Geriatric Medicine
DX: A04.9 Bacterial intestinal infection, unspecified (principal); E03.9 Hypothyroidism, unspecified; K58.9 Irritable bowel syndrome, unspecified; E66.01 Morbid (severe) obesity due to excess calories; F12.10 Cannabis abuse, uncomplicated; K21.9 Gastro-esophageal reflux disease without esophagitis; Z20.822 Contact with and (suspected) exposure to COVID-19; G89.4 Chronic pain syndrome; M19.09 Primary osteoarthritis, other specified site; M79.7 Fibromyalgia; R11.15 Cyclical vomiting syndrome unrelated to migraine; T40.715A Adverse effect of cannabis, initial encounter; Z68.41 Body mass index [BMI] 40.0-44.9, adult; Z88.8 Allergy status to other drugs, medicaments and biological substances; Z90.49 Acquired absence of other specified parts of digestive tract; Z79.899 Other long term (current) drug therapy; Y92.89 Other specified places as the place of occurrence of the external cause
CPT/HCPCS: 36415; 74176; 80053; 80076; 80307; 81001; 81025; 83605; 83690; 83735; 85025; 87081; 87426; 87804; 93005; 96374; G0378; J2405; J2470; J3490

== ENCOUNTER 2025-08-16 12:15 | Emergency (ER) | payer MEDICAID ==
[~2025-08-16] VITALS: Ht 165.1 cm; Wt 112.5 kg
[~2025-08-16 12:15] MED LIST changes: +MUPI2OIN2 EX
--- NOTE | 2025-08-16 12:35 | ED.PDOC ---
GI ASSESSMENT HPI Comments 55 y/o F, with PMHx of GERD and kidney stones presents to the ED for CC of abdominal pain. Patient states, she has been experiencing epigastric abdominal pain that radiates to her back onset, 0400 this morning (08/16/25). Patient further relays, associated symptoms of nausea and vomiting. Patient comments, on being seen at [facility] for SS twice, in the past [id number] for same symptoms. Patient endorses, smoking marijuana every now and than for symptoms of pain. Patient denies melena, hematemesis, fever, chills, or weakness. No other symptoms or modifying factors are present at this time. Chief Complaint: Abdominal Pain Time Seen by MD: 12:30 Primary Care Provider: RUDOLPH Reviewed Notes: Nurses Notes, Medications, Allergies Allergies: Coded Allergies: Latex (Verified Allergy, Unknown, 08/16/25) Home Meds Active Scripts Ondansetron Odt 4MG Tab (ZOFRAN PO) 4 Mg Tb, 4 MG PO Q8HP PRN for 10 Days, #30 TAB ODT TAB-DISSOLVE IN MOUTH, THEN SWALLOW Prov:MARISSA JONES MD 08/16/25 Pantoprazole Sodium Sesquihydr (Protonix) 40 Mg Tab, 40 MG PO BID, #30 TAB Prov:MARISSA JONES MD 08/16/25 Oxycodone W/ Acetaminophen (Percocet 5/325MG) 1 Tab Tb, 1 TAB PO BID, #60 TAB Prov:MARISSA JONES MD 08/16/25 Mupirocin (Pseudomonas Fluores (Mupirocin) 2 % Oin, 2 % EX BID for 7 Days, #1 OIN Prov:LORETTA WORKMAN RESIDENT 07/13/25 Levofloxacin Hemihydrate (LEVAQUIN 500 MG) 500 Mg Tab, 1 TAB PO DAILY, #7 TAB Prov:LURDES PUCKETT MD 06/09/23 Reported Medications Sucralfate (Sucralfate) 1 Gm Tab, 1 GM PO QID, GM 06/07/23 Levothyroxine Sodium (Levothyroxine Sodium) 50 Mcg Tab, 50 MCG PO QAM for 30 Days, MCG 06/07/23 Mode of Arrival: Ambulatory Past Medical History PAST MEDICAL HISTORY: GERD, Kidney Stones Surgical History: BTL, Cholecystectomy, Hernia Repair WELLNESS AMBASSADOR History: No Pertinent WELLNESS AMBASSADOR History Family History Family History: Reviewed,noncontributory to illness, No family hx of Cancer, No family hx of DM, No family hx of Heart lucho, No family hx of HTN, No family hx ofKidney lucho, No family hx of Liver lucho, No family hx of Lung lucho, No family hx of Stroke Social History Smoker: Non-Smoker Alcohol: Denies ETOH Use Drugs: Marijuana Lives In: Home Constitutional: denies: chills, diaphoresis, fatigue, fever, malaise, sweats, w eakness, others EENTM: denies: blurred vision, double vision, ear bleeding, ear discharge, ear drainage, ear pain, ear ringing, eye pain, eye redness, hearing loss, mouth pain, mouth swelling, nasal discharge, nose bleeding, nose congestion, nose pain, photophobia, tearing, throat pain, throat swelling, voice changes, others Respiratory: denies: cough, hemoptysis, orthopnea, SOB at rest, shortness of breath, SOB with excertion, stridor, wheezing, others Cardiovascular: denies: chest pain, dizzy spells, diaphoresis, Dyspnea on exertion, edema, irregular heart beat, left arm pain, lightheadedness, palpitations, PND, syncope, others Gastrointestinal: reports: abdominal pain, nausea, vomiting; denies: abdomen distended, blood streaked bowels, constipated, diarrhea, dysphagia, difficulty swallowing, hematemesis, melena, poor appetite, poor fluid intake, rectal bleed ing, rectal pain, others Genitourinary: denies: abnormal vagina bleeding, burning, dyspareunia, dysuria, flank pain, frequency, hematuria, incontinence, pain, , vagina discharge, urgency, others Neurological: denies: dizziness, fainting, headache, left sided numbness, left sided weakness, numbness, paresthesia, pre-existing deficit, right sided numbness, right sided weakness, seizure, speech problems, tingling, tremors, weakness, others Musculoskeletal: denies: back pain, gout, joint pain, joint swelling, muscle pain, muscle stiffness, neck pain, others Integumetry: denies: bruises, change in color, change in hair/nails, dryness, laceration, lesions, lumps, rash, wounds, others Allergic/Immunocompromised: denies: Difficulty Healing, Frequent Infections, Hives, Itching, others Hematologic/Lymphatic: denies: anemia, blood clots, easy bleeding, easy bruising, swollen glands, others Endocrine: denies: excessive hunger, excessive sweating, excessive thirst, excessive urination, flushing, intolerance to cold, intolerance to heat, unexplained weight gain, unexplained weight loss, others Psychiatric: denies: anxiety, bipolar disorder, depression, hopeless, panic disorder, schizophrenia, sleepless, suicidal, others All Other Systems: Reviewed and Negative Physical Exam General Appearance: Mild Distress, Obese HEENT: Normal ENT Inspection, Pharynx Normal, TMs Normal Neck: Full Range of Motion, Non-Tender, Normal, Normal Inspection Respiratory: Chest Non-Tender, Lungs Clear, No Accessory Muscle Use, No Respiratory Distress, Normal Breath Sounds Cardiovascular: No Edema, No JVD, No Murmur, No Gallop, Normal Peripheral Pulses, Regular Rate/Rhythm Breast Exam: Deferred Gastrointestinal: Epigastric, No Organomegaly, No Pulsatile Mass, Normal Bowel Sounds, Soft, Tenderness Genitalia: Deferred Pelvic: Deferred Rectal: Deferred Extremities: No calf tenderness, Normal capillary refill, Normal inspection, Normal range of motion, Non-tender, No pedal edema Musculoskeletal : Apperance: Normal Neurologic: Alert, automatic coin machine mechanic II-XII nml as Tested, No Motor Deficits, Normal Affect, Normal Mood, No Sensory Deficits Cerebellar Function: Normal Reflexes: Normal Skin: Dry, Normal Color, Warm Lymphatic: No Adenopathy EKG EKG : Pulse Rate (adult): 69 [place]: Normal Cardiac Rhythm: NSR Block: None Hypertrophy: None ST: Normal Was a procedure done? Was a procedure done?: No GI differential Dx Differential Diagnosis: Gastritis/PUD, Gastroenteritis, Drug toxicity, Bacterial, Viral X-Ray, Labs, Meds, VS Vital Signs Date Time Temp Pulse Resp B/P (MAP) Pulse Ox O2 Delivery O2 Flow Rate FiO2 08/16/25 13:38 97 Room Air* 0 21 08/16/25 13:37 77 19 138/96 (110) 97 08/16/25 13:27 77 17 138/96 08/16/25 12:57 82 18 180/93 08/16/25 12:50 97.6 72 19 180/92 (121) 97 97.6 08/16/25 12:36 69 08/16/25 12:24 68 08/16/25 12:16 98.3 78 18 153/93 98 98.3 Lab Test 08/16/25 13:53 08/16/25 12:40 Range/Units Urine Opiates Screen Neg NEGATIVE Urine Fentanyl Screen Neg NEGATIVE Urine Barbiturates Screen Neg NEGATIVE Urine Phencyclidine Screen Neg NEGATIVE Urine Amphetamines Screen Neg NEGATIVE Urine Benzodiazepines Screen Neg NEGATIVE Urine Cocaine Screen Neg NEGATIVE Urine Cannabinoids Screen Pos NEGATIVE White Blood Count 7.8 4.4-10.8 10^3/uL Red Blood Count 5.38 H 4.0-5.20 10^6/uL Hemoglobin 15.6 12.2-16.2 g/dL Hematocrit 46.1 H 36.0-46.0 % Mean Corpuscular Volume 85.7 80.0-100.0 fL Mean Corpuscular Hemoglobin 29.0 28.0-32.0 pg Mean Corpuscular Hemoglobin Concent 33.9 32.0-36.0 g/dL Red Cell Distribution Width 14.3 11.8-14.3 % Platelet Count 177 140-450 10^3/uL Mean Platelet Volume 8.1 6.9-10.8 fL Neutrophils (%) (Auto) 78.9 37.0-80.0 % Lymphocytes (%) (Auto) 17.9 10.0-50.0 % Monocytes (%) (Auto) 2.5 0.0-12.0 % Eosinophils (%) (Auto) 0.2 0.0-7.0 % Basophils (%) (Auto) 0.5 0.0-2.0 % Neutrophils # (Auto) 6.2 1.6-8.6 10 ^3/uL Lymphocytes # (Auto) 1.4 0.4-5.4 10 ^3/uL Monocytes # (Auto) 0.2 0-1.3 10 ^3/uL Eosinophils # (Auto) 0 0-0.8 10 ^3/uL Basophils # (Auto) 0 0-0.2 10 ^3/uL Nucleated Red Blood Cells 0.0 % Sodium Level 141 136-145 mmol/L Potassium Level 3.7 3.5-5.1 mmol/L Chloride Level 106 98-107 mmol/L Carbon Dioxide Level 23 20-31 mmol/L Anion Gap 12 5-15 Blood Urea Nitrogen 9 9-23 mg/dL Creatinine 0.90 0.550-1.02 mg/dL Glomerular Filtration Rate Calc 76 >90 mL/min BUN/Creatinine Ratio 10.0 10.0-20.0 Serum Glucose 111 H 74-106 mg/dL Calcium Level 10.2 8.7-10.4 mg/dL Total Bilirubin 0.9 0.2-1.0 mg/dL Aspartate Amino Transferase (AST) 24 13-40 U/L Alanine Aminotransferase (ALT) 24 7-40 U/L Alkaline Phosphatase 91 46-116 U/L Total Protein 8.3 H 5.7-8.2 g/dL Albumin 4.7 3.2-4.8 g/dL Lipase 52 12-53 U/L Current Medications Medications (Trade) Dose Ordered Sig/Yoli Route Start Time Stop Time Status Last Admin Sodium Chloride 1,000 ml @ 1,000 mls/hr Q1H ONCE IVB 08/16/25 12:30 08/16/25 13:29 DC 08/16/25 12:56 Morphine Sulfate 4 mg ONCE ONCE IV 08/16/25 12:30 08/16/25 12:31 DC 08/16/25 12:57 Pantoprazole Sodium (Protonix) 40 mg ONCE ONCE IV 08/16/25 12:30 08/16/25 12:31 DC 08/16/25 12:55 Prochlorperazine Edisylate (Compazine Inj) 10 mg ONCE ONCE IV 08/16/25 12:30 08/16/25 12:31 DC 08/16/25 12:55 IV Hep-Lock was established The patient was given a 1 L bolus of normal saline The patient was given morphine 4 mg IV push The patient was given Protonix 40 mg IV push The patient was given Compazine 10 mg IV push for the nausea and vomiting The patient's CBC and chemistry panel are within normal limits The urine tox is positive for marijuana We feel that this patient's vomiting could be secondary to her cannabis use The patient is discharged Time of 1ST Reevaluation: 01:00 Reevaluation 1ST: Unchanged Patient Education/Counseling: Diagnosis, Treatment, Prognosis, Need For Follow Up Family Education/Counseling: No Family Present SEPSIS Sepsis Screen Date sepsis recognized/suspect: Aug 16, 2025 Time Sepsis recognized/suspect: 1216 Recent Procedure: No On Antibiotic Therapy: No Respiratory Rate >20: No Heart Rate >90: No Temp<36 C (96.8 F) or >38.3 C: No SBP <90 or MAP <65 mmHG: No New Acute Mental Status Change: No Is the patient on CPAP, BIPAP,: No Physician Orders Electrocardigram (08/16/25 12:30) Heplock Iv (08/16/25 12:29) Carton Machine Operator (08/16/25 12:29) Blood Pressure (08/16/25 12:29) Pulse Oximetry (08/16/25 12:29) Vital Signs Date Time Temp Pulse Resp B/P (MAP) Pulse Ox O2 Delivery O2 Flow Rate FiO2 08/16/25 13:38 97 Room Air* 0 21 08/16/25 13:37 77 19 138/96 (110) 97 08/16/25 13:27 77 17 138/96 08/16/25 12:57 82 18 180/93 08/16/25 12:50 97.6 72 19 180/92 (121) 97 97.6 08/16/25 12:36 69 08/16/25 12:24 68 08/16/25 12:16 98.3 78 18 153/93 98 98.3 Laboratory Tests Test 08/16/25 12:40 White Blood Count 7.8 10^3/uL (4.4-10.8) Medications Medications Dose Ordered Sig/Yoli Route Start Time Stop Time Status Last Admin Dose Admin Morphine Sulfate 4 mg ONCE ONCE IV 08/16/25 12:30 08/16/25 12:31 DC 08/16/25 12:57 Pantoprazole Sodium 40 mg ONCE ONCE IV 08/16/25 12:30 08/16/25 12:31 DC 08/16/25 12:55 Prochlorperazine Edisylate 10 mg ONCE ONCE IV 08/16/25 12:30 08/16/25 12:31 DC 08/16/25 12:55 Sodium Chloride 1,000 ml @ 1,000 mls/hr Q1H ONCE IVB 08/16/25 12:30 08/16/25 13:29 DC 08/16/25 12:56 Departure 1 Departure Time of Disposition: 14:47 Impression: Primary Impression: Refractory nausea and vomiting Disposition: 01 HOME / SELF CARE / HOMELESS Condition: Fair e-Prescriptions Ondansetron Odt 4MG Tab (ZOFRAN PO) 4 Mg Tb 4 MG PO Q8HP PRN for 10 Days, #30 TAB ODT TAB-DISSOLVE IN MOUTH, THEN SWALLOW Prov: MARISSA JONES MD 08/16/25 Pantoprazole Sodium Sesquihydr (Protonix) 40 Mg Tab 40 MG PO BID, #30 TAB Prov: MARISSA JONES MD 08/16/25 Oxycodone W/ Acetaminophen (Percocet 5/325MG) 1 Tab Tb 1 TAB PO BID, #60 TAB Prov: MARISSA JONES MD 08/16/25 Discharged With: Self Critical Care Note Critical Care Time?: No Stability Stability form required: No Heart Score Heart Score: Heart Score Response (Comments) Value History N/A 0 EKG N/A 0 Age N/A 0 Risk Factors N/A 0 Troponin N/A 0 Total 0 I personally scribed for MARISSA JONES MD ([email or web address]) on 08/16/25 at 12:35. Elec tronically submitted by Maribel Thomson ([email or web address]). I personally scribed for MARISSA JONES MD ([email or web address]) on 08/16/25 at 12:36. Electronically submitted by Maribel Thomson [email or web address]). MARISSA JONES MD Aug 16, 2025 12:35
[2025-08-16 12:48] LABS: Hematocrit 46.1 % (36.0-46.0); Hemoglobin 15.6 g/dL (12.2-16.2); Mean Corpuscular Hemoglobin 29.0 pg (28.0-32.0); Mean Corpuscular Volume 85.7 fL (80.0-100.0); Nucleated Red Blood Cells % 0.0 %
[2025-08-16 12:50] VITALS: TEMP 97.6
[2025-08-16] MEDS: PROCHLORPERAZINE EDISYLATE 5 MG/ML 2ML VIAL IV ONE (12:55)
[2025-08-16] MEDS: PANTOPRAZOLE 40 MG/10 ML VIAL INJ IV ONE (12:55)
[2025-08-16] MEDS: SODIUM CHLORIDE 0.9% 1,000 ML IVB ONE (12:56)
[2025-08-16] MEDS: MORPHINE SULFATE 4 MG/ML SYR/VIAL IV ONE (12:57)
[2025-08-16 13:09] LABS: Alanine Aminotransferase 24 U/L (7-40); Albumin 4.7 g/dL (3.2-4.8); Alkaline Phosphatase 91 U/L (46-116); Anion Gap 12 (5-15); BUN/Creatinine Ratio 10.0 (10.0-20.0); Bilirubin, Total 0.9 mg/dL (0.2-1.0); Calcium 10.2 mg/dL (8.7-10.4); Carbon Dioxide 23 mmol/L (20-31); Chloride 106 mmol/L (98-107); Potassium 3.7 mmol/L (3.5-5.1); Sodium 141 mmol/L (136-145)
[2025-08-16 13:10] LABS: Blood Urea Nitrogen 9 mg/dL (9-23); Glucose 111 mg/dL (74-106); Total Protein 8.3 g/dL (5.7-8.2)
[2025-08-16 13:20] LABS: Lipase 52 U/L (12-53)
[2025-08-16 13:37] VITALS: BP 138/96; PULSE 77; RESP 19
[2025-08-16 13:38] VITALS: O2SAT 97
[2025-08-16 14:18] LABS: Opiate Scree,Urine Neg (NEGATIVE)
[2025-08-16 14:19] LABS: Amphetamine Screen, Urine Neg (NEGATIVE); Barbiturate Scree,Urine Neg (NEGATIVE); Benzodiazephine Screen, Urine Neg (NEGATIVE); Cannabinoid Screen, Urine Pos (NEGATIVE); Cocaine Screen, Urine Neg (NEGATIVE); Phencyclidine Screen, Urine Neg (NEGATIVE)
[2025-08-16] MEDS ORDERED: ZOFR4T PO (14:46)
[2025-08-16] MEDS ORDERED: PANT40TA2 PO (14:46)
[2025-08-16] MEDS ORDERED: PERCOT PO (14:46)
--- NOTE | 2025-08-17 09:02 | ECG ---
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
== END 2025-08-16 17:12 | disposition home or self-care (01) ==
LOC: ER 12:15
DX: R10.13 Epigastric pain (principal); R11.2 Nausea with vomiting, unspecified; K21.9 Gastro-esophageal reflux disease without esophagitis; Z79.899 Other long term (current) drug therapy; Z87.442 Personal history of urinary calculi; Z90.49 Acquired absence of other specified parts of digestive tract; Z91.040 Latex allergy status; Z98.51 Tubal ligation status; Z98.890 Other specified postprocedural states
CPT/HCPCS: 36415; 80053; 80307; 83690; 85025; 93005; 96361; 96374; 96375; 99284; J0780; J2270; J2470; J7030